=== PATIENT | female | born 1990 | race Caucasian/White ===

== ENCOUNTER 2024-12-31 12:24 | Emergency (ER) | payer BC ==
[2024-12-31] MEDS ORDERED: Sodium Chloride 0.9% 10 ML Syringe FLUSH PRN (12:35)
[2024-12-31] MEDS: Ondansetron 4 MG/2 ML SDV IVPUSH ONE ×2 (12:46→13:24)
[2024-12-31] MEDS: Sodium Chloride 0.9% 1,000 ML IV ONE ×2 (12:46→14:16)
[2024-12-31] MEDS: LORazepam 2 MG/ML SDV IVPUSH ONE (12:47)
[2024-12-31 12:56] LABS: HEMATOCRIT 44.1 % (34.2-48.2); HEMOGLOBIN 15.3 g/dL (11.4-15.5); MEAN CORPUSCULAR HEMOGLOBIN 29.3 pg (23.9-33.9); MEAN CORPUSCULAR HGB CONC 34.6 g/dL (31.9-34.8); MEAN CORPUSCULAR VOLUME 84.7 fL (76.7-100.5); MEAN PLATELET VOLUME 7.3 fL (7.1-12.4); PLATELET COUNT,PLT 293 x10(3)uL (151-488); RED BLOOD CELL COUNT 5.21 x10(6)uL (3.60-5.20); RED CELL DISTRIBUTION WIDTH 13.8 % (12.3-16.5); WHITE BLOOD CELL COUNT,WBC 12.1 x10-3/uL (3.0-10.3)
[2024-12-31 12:59] LABS: BLOOD UREA NITROGEN,BUN 19 mg/dL (7-18); BUN/CREATININE RATIO 15.8 (9-20); CALCIUM 9.9 mg/dL (8.6-10.2); CARBON DIOXIDE,CO2 20 mmol/L (21-32); CHLORIDE,CL 103 mmol/L (100-110); CREATININE 1.2 mg/dL (0.55-1.02); ESTIMATED GFR 62 mL/min (>60); GLUCOSE RANDOM 152 mg/dL (80-116); POTASSIUM,K 3.9 mmol/L (3.5-5.3); SODIUM,NA 140 mmol/L (135-145)
[2024-12-31 13:05] LABS: A/G RATIO 1.3; ALANINE AMINOTRANSFERASE,ALT 31 U/L (12-36); ALBUMIN 4.6 g/dL (3.5-5.2); ALKALINE PHOSPHATASE 66 IU/L (56-112); ASPARTATE AMNIOTRANSFERASE,AST 17 IU/L (5-25); BILIRUBIN TOTAL 1.6 mg/dL (0.1-1.3); PROTEIN TOTAL,TP 8.2 g/dL (6.0-8.0)
[2024-12-31 13:09] LABS: LACTIC ACID 2.6 mmol/L (0.4-2.0)
[2024-12-31 13:16] LABS: EOSINOPHILS PERCENT MAN 1 % (0-5); LYMPHOCYTES PERCENT MAN 2 % (13-37); MONOCYTES PERCENT MAN 2 % (4-12); SEG NEUTROPHILS PERCENT MAN 95 % (46-82)
[2024-12-31] MEDS: Promethazine 12.5 MG in Sodium Chloride 0.9% 50 ML IV ONE (14:16)
== END 2024-12-31 15:08 | disposition home or self-care (01) ==
LOC: FB.ED 12:24
DX: K52.9 Noninfective gastroenteritis and colitis, unspecified (principal); F45.8 Other somatoform disorders; Z88.8 Allergy status to other drugs, medicaments and biological substances; Z79.899 Other long term (current) drug therapy
CPT/HCPCS: 36415; 80053; 83605; 83690; 84484; 85025; 93005; 96361; 96365; 96375; 96376; 99285; J2060; J2405; J2550; J7030